=== PATIENT | male | born 1990 | race Two or more races ===

== ENCOUNTER 2022-08-13 00:11 | Emergency (ER) | payer OTHER ==
[~2022-08-13] VITALS: Ht 175.3 cm; Wt 81.6 kg
[2022-08-13] MEDS ORDERED: TAMS0.4C PO ×2 (07:26→07:28)
[2022-08-13] MEDS ORDERED: KETO10TA2 PO (07:27)
[2022-08-13] MEDS ORDERED: CEPHALEXIN500 MG PO ×2 (07:27→07:28)
== END 2022-08-13 07:47 ==
LOC: ER 00:11
DX: N23 Unspecified renal colic (principal); N20.1 Calculus of ureter